=== PATIENT | female | born 2000 | race Caucasian/White ===

== ENCOUNTER 2025-07-02 05:17 | Inpatient (IN) | payer BC ==
[2025-07-02 06:10] VITALS: BMI 31.1
[2025-07-02] MEDS ORDERED: Ibuprofen 800 MG TAB PO PRN (07:45)
[2025-07-02] MEDS ORDERED: Carboprost 250 MCG/ML AMP IM PRN (07:45)
[2025-07-02] MEDS ORDERED: HYDROcodone/Acetaminophen 5/325 mg Tablet PO PRN (07:45)
[2025-07-02] MEDS ORDERED: hydrALAZINE 20 MG/ML VIAL SLOW IVP PRN (07:45)
[2025-07-02] MEDS ORDERED: Diphenoxylate HCl/Atropine Tablet PO PRN (07:45)
[2025-07-02] MEDS ORDERED: Acetaminophen 500 MG TAB PO PRN (07:45)
[2025-07-02] MEDS ORDERED: Oxytocin 30 units/NS 500 ML 500 ML IV SCH (07:45)
[2025-07-02 08:03] LABS: Hematocrit 34.3 % (34.9-44.5); Hemoglobin 11.6 g/dL (12.0-15.5); Mean Corpuscular Hemoglobin 28.6 pg (27.0-33.0); Mean Corpuscular Volume 84.5 fL (81.6-98.3); Platelet Count 241 10x3/uL (150-450); Red Blood Cell (RBC) Count 4.06 10x6/uL (3.90-5.03); White Blood Cell (WBC) Count 13.09 10x3/uL (3.5-10.5)
[2025-07-02 08:32] LABS: Hep B Surf Ag - L&D Non-Reactive S/CO (NonReactive)
[2025-07-02 08:34] LABS: Syphilis Antibody Index 0.04 S/CO (<1.00 Non-Reactive)
[2025-07-02] MEDS: Oxytocin 30 units/NS 500 ML 500 ML IV SCH (09:02)
[2025-07-02] MEDS: fentaNYL/Ropivacaine Epidural 100 ML ONE (14:32)
[2025-07-02] MEDS ORDERED: diphenhydrAMINE 50 MG/ML VIAL IVP PRN (14:56)
[2025-07-02] MEDS ORDERED: Ondansetron PF 4 MG/2 ML Vial IVP PRN (14:56)
[2025-07-02] MEDS ORDERED: Acetaminophen 325 MG TAB PO PRN (14:56)
[2025-07-02] MEDS ORDERED: fentaNYL 2 mcg/Ropivacaine 0.2% Epidural 100 ML CADD EPIDURAL SCH (15:00)
[2025-07-02] MEDS ORDERED: Communication Order-Pharmacy FS SCH (15:00)
[2025-07-02] MEDS: Ondansetron PF 4 MG/2 ML Vial IVP PRN (17:15)
[2025-07-03] MEDS ORDERED: Lanolin Ointment 7 GM TUBE TOP PRN (01:08)
[2025-07-03] MEDS ORDERED: Preparation H Ointment 28 GM TUBE PR PRN (01:08)
[2025-07-03] MEDS ORDERED: Milk Of Magnesia 30 ML UDCUP PO PRN (01:08)
[2025-07-03] MEDS ORDERED: Boostrix 0.5 ML (Tdap) VIAL (>/=7 yrs of age) IM ONE (01:08)
[2025-07-03] MEDS ORDERED: diphenhydrAMINE 25 MG CAP PO PRN (01:08)
[2025-07-03] MEDS ORDERED: Bisacodyl 10 MG SUPP PR PRN (01:08)
[2025-07-03] MEDS: Lidocaine 1% (PF) 30 ML VIAL SC PRN (01:16)
[2025-07-03] MEDS: Methylergonovine 0.2 MG/ML VIAL IM PRN (01:16)
[2025-07-03] MEDS: Tranexamic Acid 1,000 MG/10 ML VIAL ONE (03:27)
[2025-07-03] MEDS: Methylergonovine 0.2 MG/ML VIAL ONE (03:27)
[2025-07-03 04:07] LABS: Hematocrit 33.5 % (34.9-44.5); Hemoglobin 11.3 g/dL (12.0-15.5)
[2025-07-03] MEDS: Ibuprofen 800 MG TAB PO SCH (04:19)
[2025-07-03] MEDS: Ferrous Sulfate 325 MG TAB PO SCH (07:13)
[2025-07-03] MEDS: HYDROcodone/Acetaminophen 5/325 mg Tablet PO PRN (08:54)
[2025-07-03] MEDS: Benzocaine-Menthol 82.5 ML CAN TOP PRN (20:49)
[2025-07-04 08:12] VITALS: BP 110/57; TEMP 98.1
== END 2025-07-04 15:15 | disposition home or self-care (01) | DRG 807 ==
LOC: CSHLD/OP 05:17 → CSHLD 06:26 → CSHPP 07-03 03:10
PROVIDERS: ADMIT Student in an Organized Health Care Education/Training Program; ATTEND Student in an Organized Health Care Education/Training Program
PROC: 10E0XZZ Delivery of Products of Conception, External Approach (ICD-10-PCS; principal; 2025-07-02)
PROC: 0W8NXZZ Division of Female Perineum, External Approach (ICD-10-PCS; principal; 2025-07-02)
PROC: 0KQM0ZZ Repair Perineum Muscle, Open Approach (ICD-10-PCS; principal; 2025-07-02)
DX: O70.1 Second degree perineal laceration during delivery (principal); Z37.0 Single live birth; Z3A.39 39 weeks gestation of pregnancy
CPT/HCPCS: 36415; 51702; 85014; 85018; 85027; 86780; 86850; 86900; 86901; 87340; 99285; J2003; J2210; J2405; J2590; J7120